=== PATIENT | female | born 1935 | race Caucasian/White ===

== ENCOUNTER 2022-12-25 09:57 | Outpatient (CLI) | payer MEDICARE, BC, SELFPAY ==
--- NOTE | 2022-12-25 11:37 | ECG_ITS ---
Measurements Intervals [place] Rate: 48 P: 73 ID: [id number] QRS: 11 QRSD: 92 T: 9 QT: 454 QTc: 408 Interpretive Statements SINUS BRADYCARDIA LOW QRS VOLTAGE IN PRECORDIAL LEADS [QRS DEFLECTION < 1.0 mV IN CHEST LEADS] ABNORMAL ECG NO PREVIOUS ECG AVAILABLE FOR COMPARISON Electronically Signed On 12-25-2022 12:10:40 CDT by Dilip Mckay M.D.
[2022-12-25 12:06] LABS: Hematocrit 42.5 % (37.0-47.0); Hemoglobin 13.8 g/dL (12.0-15.0); Mean Corpuscular HGB Conc 32.5 g/dl (32-36); Mean Corpuscular Hemoglobin 30.9 pg (26-34); Mean Corpuscular Volume 95.3 fl (80-100); Mean Platelet Volume 9.7 fl (7.4-10.4); Platelet Count Result 227 k/mm3 (150-375); Red Blood Count 4.46 M/mm3 (4.2-5.4); Red Cell Distribution Width 13.2 % (11.5-14.5); White Blood Count 6.4 K/mm3 (4.5-10.0)
[2022-12-25 12:09] LABS: Appearance Urine Clear (Clear); Bilirubin Urine Negative (Negative); Blood Urine Negative (Negative); Color Urine Yellow (Yellow); Glucose Urine UA Negative (Negative); Ketones Urine Negative (Negative); Leukocyte Esterase Ur Negative LEU/UL (Negative); Nitrate Urine Negative (Negative); Protein Urine Negative (Negative); Specific Grav Ur 1.005 (1.001-1.035); Urobilinogen Urine 0.2 mg/dL (<2.0)
[2022-12-25 12:15] LABS: Anion Gap 4 mmol/L (8-16); Blood Urea Nitrogen 34 mg/dL (7-17); Calcium 9.1 mg/dL (8.4-10.2); Carbon Dioxide 34 mmol/L (22-30); Chloride 102 mmol/L (98-107); Estimated Glomerular Filt Rate 53; Glucose 90 mg/dL (65-110); Potassium 4.3 mmol/L (3.4-5.0); Sodium 140 mmol/L (137-145)
[2022-12-25 12:16] LABS: Add Urine Microscopic? NO
[2022-12-25 12:19] LABS: Prothrombin Time 13.4 Seconds (11.1-14.7)
[2022-12-25 12:20] LABS: Partial Thromboplastin Time 28.8 SECONDS (22.3-36.8)
== END 2022-12-25 09:58 | disposition home or self-care (01) ==
LOC: ANHSURGERY 10:08
PROVIDERS: PCP Family Medicine; Visit Provider Neurological Surgery
DX: M54.9 Dorsalgia, unspecified (principal); G89.29 Other chronic pain; E78.5 Hyperlipidemia, unspecified; Z01.818 Encounter for other preprocedural examination; R94.31 Abnormal electrocardiogram [ECG] [EKG]
CPT/HCPCS: 36415; 80048; 81003; 85027; 85610; 85730; 93005

== ENCOUNTER 2022-12-28 00:04 | Day surgery (SDC) | payer MEDICARE, BC, SELFPAY ==
[2022-12-25 10:15] VITALS: BMI 40.1
[2022-12-25 10:33] VITALS: BP 133/71; PULSE 55; RESP 16; TEMP 37.1; O2SAT 98
--- NOTE | 2022-12-25 11:00 | PC.NURSE ---
Report to the Outpatient Waiting Room, entrance under the green pavilion located off [facility], at time __10:00AM on date ___12/28/22____. Planned Procedure Time: __12:00PM . Time changes happen often and if your time is changed the preop area will call you the afternoon before. - You and your visitor will be asked to self-screen and do not enter if you have any COVID symptoms. - A mask is optional within the hospital at this time. Patients may have clear liquids (water, carbonated beverages, clear teas, apple juice) until 3 hours prior to surgery with a maximum of 20 ounces. - No food from midnight until time of surgery Take the following medications with a SIP of water the morning of surgery: ___COMBIVENT INHALER, LEVOTHYROXINE, LYRICA DO NOT STOP ANY OF YOUR OTHER PRESCRIPTION MEDICATIONS PRIOR TO SURGERY ?EXCEPT THE FOLLOWING Medications to discontinue per physician ___HOLD ELIQUIS & ASPIRIN 3 DAYS PRE-OP PER DR. AYALA/DR GUZMAN- LAST DOSE 12/24/22. HOLD MAGNESIUM & VIT D 3 DAYS PRE-OP PER ANESTHESIA- LAST DOSE 12/24/22 Please no make-up, nail occitan, hairspray, perfume, deodorant, or body powder the day of surgery. No jewelry (including any body piercings) or valuables the day of surgery, leave them at home. Please take a shower or bath the night before, or the morning of, surgery with an antibacterial soap. Wear comfortable, loose fitting clothing. Children are encouraged to wear pajamas. - Jewelry must be removed prior to entering the operating room. Rings and piercings that are not removed may be cut off. - The hospital will not accept responsibility for valuables. - Please leave all valuables, including medications, at home the day of surgery. If you are going home after surgery, a licensed courier driver must drive you home. - NO public transportation without another adult if you receive anesthesia. - We recommend that an adult stay with you for 24 hours following discharge. - We also recommend that you do not drive, make important decision, drink alcoholic beverages, or take any drugs that were not prescribed by your health care provider for at least 24 hours after your discharge time. Follow any additional instructions given to you from your surgeon. If you or anyone in your household have experienced Covid symptoms in the past week, please notify your surgeon or the nurse liaison at the phone number below for possible testing. Telephone instructions given to _PATIENT AND [id number] vmd asked if any additional questions and then verbalized understanding. Patient advised to call surgeon office or pre surgery nurse liaison [phone] if any additional questions. Report to the Outpatient Waiting Room, entrance under the [facility] pavilion located off [facility], at time on date . Planned Procedure Time: . Time changes happen often and if your time is changed the preop area will call you the afternoon before. - You and your visitor will be asked to self-screen and do not enter if you have any COVID symptoms. - A mask is optional within the hospital at this time. Patients may have clear liquids (water, carbonated beverages, clear teas, apple juice) until 3 hours prior to surgery with a maximum of 20 ounces. - No food from midnight until time of surgery - Infants may have breast milk until 4 hours before surgery, infant formula 6 hours prior to surgery. - Children will be allowed to drink immediately following surgery. If applicable, please bring a bottle or sippy cup to assist with drinking. Juice, water, soda, and popsicles are readily available. For infants on formula, please bring formula the day of surgery. Pacifiers are allowed. Take the following medications with a SIP of water the morning of surgery: DO NOT STOP ANY OF YOUR OTHER PRESCRIPTION MEDICATIONS PRIOR TO SURGERY ?EXCEPT THE FOLLOWING Medications to discontinu
[2022-12-28] VITALS (7 sets, daily range): BP systolic 98–148; BP diastolic 44–82; PULSE 58–93; RESP 14–20; TEMP 36.4–36.8; O2SAT 97–100
--- NOTE | 2022-12-28 11:12 | WPDANESEPPF ---
Anes - Initial Pre Proc Eval Procedure: Operation Date: 12/28/22 12:00 Proposed Procedures p Removal of Dorsal Column Stimulator Lead and Generator - Ildefonso Ramos MD Date/Time: 12/28/22 11:12 Surgeon: Ildefonso Ramos MD Pre Op Diagnosis: Chr Back Pain, Chronic Leg Pain Patient Data Age: 87 Gender: F Height: 1.61 m Weight: 104.4 kg Last Vital Signs Temp 36.4 C L 12/28/22 10:48 Pulse 62 12/28/22 10:48 Resp 14 12/28/22 10:48 BP 128/60 12/28/22 10:48 Pulse Ox 97 12/28/22 10:48 O2 Del Method Room Air 12/28/22 10:48 Allergies Allergy/AdvReac Type Severity Reaction Status Date / Time adhesive tape Allergy Intermediate Itching, Verified 12/28/22 10:59 REDNESS clopidogrel [From Plavix] AdvReac Severe GI Bleeding Verified 12/28/22 10:59 Home Medications Medication Instructions Recorded Confirmed Type apixaban 2.5 mg tablet (Eliquis) 2.5 mg PO BID 11/06/22 12/25/22 History aspirin 81 mg tablet,delayed 81 mg PO WEEKLY 11/06/22 12/25/22 History release (Adult Low Dose Aspirin) bumetanide 1 mg tablet 1 mg PO QAM 11/06/22 12/25/22 History cholecalciferol (vitamin D3) 25 2,000 unit PO DAILY 11/06/22 12/25/22 History mcg (1,000 unit) capsule fluticasone propionate 50 2 spray intranasal QAM 11/06/22 12/25/22 History mcg/actuation nasal spray,suspension ipratropium 20 mcg-albuterol 100 1 puff inhalation QID PRN 11/06/22 12/28/22 History mcg/actuation mist for inhalation Shortness Of Breath Or Wheezing (Combivent Respimat) latanoprost 0.005 % eye drops 1 drp EACH EYE HS 11/06/22 12/25/22 History (Xalatan) magnesium oxide 400 mg (241.3 mg 400 mg PO DAILY 11/06/22 12/25/22 History magnesium) tablet (MagOx) pantoprazole 40 mg tablet,delayed 40 mg PO DAILY 11/06/22 12/25/22 History release (Protonix) polyethylene glycol 3350 17 17 g PO DAILY PRN Constipation 11/06/22 12/25/22 History gram/dose oral powder (Miralax) potassium chloride 10 mEq 10 meq PO DAILY 11/06/22 12/25/22 History capsule,extended release pregabalin 50 mg capsule (Lyrica) 50 mg PO BID 11/06/22 12/28/22 History ropinirole 1 mg tablet 1 mg PO QPM 11/06/22 12/25/22 History acetaminophen 500 mg capsule 1,000 mg PO Q6H PRN Pain 12/25/22 12/25/22 History levothyroxine 125 mcg tablet 125 mcg PO QAM 12/25/22 12/28/22 History (Synthroid) loratadine 10 mg tablet (Claritin) 10 mg PO DAILY PRN Sinus Symptoms 12/25/22 12/25/22 History rosuvastatin 20 mg tablet 20 mg PO DAILY 12/25/22 12/25/22 History Patient hx anesthesia problems: none Family hx anesthesia problems: none Results Review: All pre-operative results and documents have been reviewed as part of the pre-operative evaluation. [facility] Past Medical History Medical History Arthritis CAD (coronary artery disease) Frequent falls GERD (gastroesophageal reflux disease) Heart disease History of heart attack Hyperlipidemia Kidney disease Thyroid disease Family History Family History Father History of cancer Mother History of cancer Diabetes mellitus Sibling History of cancer Social History Social History Social History: Laura is very confident in filling out medical forms and has not had any assistance in the last 12 months. She has had 6 pregnancies, 1 miscarriage and 5 live births. Flu, tetanus and pneumonia vaccine: 02/25, in 6mos she is having her cholesterol checked, and last colonoscopy was in 2020. Smoking packs per day: 0.25 Smoking cigarettes per day: 5.0 Years smoked: 4 Smoking pack-years: 1.00 Smoking status: Former smoker Tobacco type: cigarettes Second hand tobacco smoke exposure: Yes Smoking end date: 11/05/1959 Alcohol intake: former Substance use: never Lack of Transportation: No Lack of Food: Never True Cu
[2022-12-28] MEDS: LACTATED RINGERS 1,000 ML 30 ML IV CONT (12:21)
--- NOTE | 2022-12-28 12:30 | SUR.PREOP ---
1230- Informed patient and son delay to procedure start time. Patient and son verbalized understanding and denying needs at this time.
--- NOTE | 2022-12-28 13:35 | PM.IMHP ---
H&P: HPI History of Present Illness Date/Time: 12/28/22 13:35 Chief Complaint: Chronic back and leg pain Narrative: Laura is an 87-year-old female with dorsal column stimulator in place that is no longer working for her and presents for removal of that device. She has some weakness of dorsiflexion on the right but otherwise no specific muscle group weakness or dermatomal numbness. She is not having bowel or bladder difficulty she has not changed appreciably since we last saw her. Review of Systems Review of Systems: Patient denies shortness of breath, cough, fever, chills, nausea, vomiting, weight loss, weight gain, chest pain, dysuria. She has back and leg pain as above. Review of systems otherwise negative on 12 systems except as noted elsewhere. [facility] Past Medical History Medical History Arthritis CAD (coronary artery disease) Frequent falls GERD (gastroesophageal reflux disease) Heart disease History of heart attack Hyperlipidemia Kidney disease Thyroid disease Family History Family History Father History of cancer Mother History of cancer Diabetes mellitus Sibling History of cancer Social History Social History Social History: Laura is very confident in filling out medical forms and has not had any assistance in the last 12 months. She has had 6 pregnancies, 1 miscarriage and 5 live births. Flu, tetanus and pneumonia vaccine: 02/25, in 6mos she is having her cholesterol checked, and last colonoscopy was in 2020. Smoking packs per day: 0.25 Smoking cigarettes per day: 5.0 Years smoked: 4 Smoking pack-years: 1.00 Smoking status: Former smoker Tobacco type: cigarettes Second hand tobacco smoke exposure: Yes Smoking end date: 11/05/1959 Alcohol intake: former Substance use: never Lack of Transportation: No Lack of Food: Never True Current Housing: I Have Housing Concerned About Future Housing: No Difficulty Paying Gas/Electric Bills: No Difficulty Paying for Meds: No Currently Unemployed: No Education: High School Diploma/GED Difficulty w/ Childcare or Family Care: No Living arrangements: alone Additional living arrangements comments: SUPPORTIVE LIVING APARTMENT Occupation/Education: retired Gender identity (if verbalized by the patient): Female Sexual Orientation (if Verbalized by the Patient): Straight or Heterosexual Spiritual care concerns: No Agree to blood products: Yes Meds Home Medications and Allergies Home Medications Medication Instructions Recorded Confirmed Type apixaban 2.5 mg tablet (Eliquis) 2.5 mg PO BID 11/06/22 12/25/22 History aspirin 81 mg tablet,delayed 81 mg PO WEEKLY 11/06/22 12/25/22 History release (Adult Low Dose Aspirin) bumetanide 1 mg tablet 1 mg PO QAM 11/06/22 12/25/22 History cholecalciferol (vitamin D3) 25 2,000 unit PO DAILY 11/06/22 12/25/22 History mcg (1,000 unit) capsule fluticasone propionate 50 2 spray intranasal QAM 11/06/22 12/25/22 History mcg/actuation nasal spray,suspension ipratropium 20 mcg-albuterol 100 1 puff inhalation QID PRN 11/06/22 12/28/22 History mcg/actuation mist for inhalation Shortness Of Breath Or Wheezing (Combivent Respimat) latanoprost 0.005 % eye drops 1 drp EACH EYE HS 11/06/22 12/25/22 History (Xalatan) magnesium oxide 400 mg (241.3 mg 400 mg PO DAILY 11/06/22 12/25/22 History magnesium) tablet (MagOx) pantoprazole 40 mg tablet,delayed 40 mg PO DAILY 11/06/22 12/25/22 History release (Protonix) polyethylene glycol 3350 17 17 g PO DAILY PRN Constipation 11/06/22 12/25/22 History gram/dose oral powder (Miralax) potassium chloride 10 mEq 10 meq PO DAILY 11/06/22 12/25/22 History capsule,extended release pregabalin 50 mg capsule (Lyrica) 50 mg PO BID 11/06/22
--- NOTE | 2022-12-28 13:37 | WPDHPUPDATE1 ---
History and Physical Update Update Date/Time: 12/28/22 13:37 History and Physical has been reviewed, including an updated exam of the patient. There are NO changes in the patient's condition. Risks, benefits, and alternatives have been discussed and questions answered. Patient agrees to proceed with procedure.
[2022-12-28] MEDS: ceFAZolin 2 GM/D5W 50 ML 2 GM/50 ML BAG IVPB (13:43)
[2022-12-28] MEDS: LIDO 1%/EPINEPHRINE 1:100,000 50 ML VIAL 10 ML INFILTRATE (14:10)
--- NOTE | 2022-12-28 14:32 | W.PM.PROC2 ---
Procedure Note - Detailed Date of Procedure 12/28/22 Pre-op Diagnosis Chr Back Pain, Chronic Leg Pain Post-op Diagnosis Same Procedure Performed Removal of dorsal column stimulator lead and generator Surgeon Ildefonso Ramos MD Anesthesia General Description of Procedure Patient was brought to the operating room in the supine position, was sedated, intubated placed under general anesthesia in routine fashion. He was then turned into the prone position on a Robinson frame. There of operation on her back was examined, marked for incision, prepped and draped in routine sterile fashion. Incision was marked over the previous incisions the left flank and trans adversely and longitudinally in the thoracic spine. These areas were injected with 0.5% lidocaine with [id number] epinephrine. Intravenous antibiotics given prior to incision. Incisions were made with a 10 blade scalpel. Bovie cautery was used to complete the soft tissue discovered the generator and release it from the fascia and uncoiled the wires. Wires were cut the generator was passed off the field. At the thoracic incision Bovie cautery was used to discover the wires were then pulled through from the flank incision. Their attachment to the spinous process was discovered and disconnected using Bovie cautery. The wires were then followed to the epidural space using Bovie cautery. Shoulders of the lead were discovered there were pulled out of the epidural space. The sleeve the entire device including the generator, lead and connector were all removed. The wounds were then copiously irrigated with bacitracin irrigation all bleeding stopped with bipolar Bovie cautery and Gelfoam thrombin powder. The wound was then closed in layered fashion with 2-0 Vicryl interrupted sutures in the thoracic fascia and Binh's layer. At both incisions 3-0 Vicryl buried interrupted sutures were placed in the dermis in the skin was closed with a running 4-0 Monocryl subcuticular stitch and dressed with Dermabond. The patient was loud wake up in the operating room and was taken to the recovery room in stable condition. There were no immediate complications of this operation. All counts were reported correct in the case. Blood loss was 5 cc. The patient was neurologically at her baseline postoperatively. Estimated Blood Loss 5 IV Fluids 500 Complications None Condition Stable Disposition PACU [facility] Billing Surgery - Charge Forward: Surgery Billing
[2022-12-28] MEDS: fentaNYL CITRATE INJ (*CRX) 100 MCG/2 ML VIAL 25 MCG IV PUSH (15:06)
== END 2022-12-28 16:36 | disposition home or self-care (01) ==
PROVIDERS: PCP Family Medicine; Visit Provider Neurological Surgery
PROC: (CPT 63688; principal; 2022-12-28 12:00)
DX: Z45.42 Encounter for adjustment and management of neurostimulator (principal); M79.606 Pain in leg, unspecified; M54.9 Dorsalgia, unspecified; G89.29 Other chronic pain; I25.10 Atherosclerotic heart disease of native coronary artery without angina pectoris; I25.2 Old myocardial infarction; K21.9 Gastro-esophageal reflux disease without esophagitis; I51.9 Heart disease, unspecified; E78.5 Hyperlipidemia, unspecified; Z87.891 Personal history of nicotine dependence; Z79.01 Long term (current) use of anticoagulants; Z79.82 Long term (current) use of aspirin; Z79.51 Long term (current) use of inhaled steroids; E66.01 Morbid (severe) obesity due to excess calories; Z68.41 Body mass index [BMI] 40.0-44.9, adult
CPT/HCPCS: 63688; 63661; J0330; J0690; J1100; J2405; J2704; J3010; J7120

== ENCOUNTER 2023-10-09 08:08 | Outpatient (CLI) | payer MEDICARE, BC, SELFPAY ==
--- NOTE | ~2023-10-09 | MR_ITS ---
MRI of the lumbar spine Clinical History: Foot drop Technique: Axial T2-weighted images, and sagittal T1-weighted, T2-weighted, and STIR images were acqu ired. Findings: There is straightening of the normal lumbar lordosis. No fracture or subluxation seen. Ther e is posterior fusion hardware extending from L3 through S1, with bilateral rods and transpedicular s crews present. There is posterior decompression at L4 and L5. No suspicious bone marrow signal abnorm ality seen. At L1-L2, there is advanced degenerative disc narrowing. There is mild disc bulge with severe facet a rthropathy. There is mild central canal stenosis and moderate bilateral neural foraminal narrowing, l eft worse than right. At L2-L3, there is moderate degenerative disc narrowing. There is minimal disc bulge and moderate fac et arthropathy. No central canal stenosis. There is probable minimal left neural foraminal narrowing. Right neural foramen preserved. At L3-L4, there is moderate degenerative disc narrowing with minimal disc bulge. No spinal canal sten osis. Probable mild bilateral neural foraminal narrowing. At L4-L5, there is advanced degenerative disc narrowing with minimal disc bulge. No central canal lora nosis. Probable moderate right neural foraminal narrowing and mild left neural foraminal narrowing. At L5-S1, there is moderate degenerative disc narrowing, without significant disc bulge or herniation . No spinal canal stenosis. Probable moderate right neural foraminal narrowing and mild left neural f oraminal narrowing. Note is made at T12-L1 disc bulge and severe facet arthropathy, resulting in moderate to severe spina l canal stenosis/thecal sac compression. Paravertebral soft tissues are unremarkable, aside from expected postoperative change. Impression: Advanced degenerative spondylosis at T12-L1 and L1-L2, as detailed above. Mild degenerative changes in the remainder of the lumbar spine. Posterior fusion changes from L3 through S1, as detailed above. Reviewed, dictated and finalized at location . Impression: Advanced degenerative spondylosis at T12-L1 and L1-L2, as detailed above. Mild degenerative changes in the remainder of the lumbar spine. Posterior fusion changes from L3 through S1, as detailed above.
[2023-10-09 09:04] LABS: Basophils Percent Auto 0.7 % (0.2-1.2); Eosinophils Absolute Auto 0.2 K/mm3 (0-0.3); Eosinophils Percent Auto 2.9 % (0-4.4); Hematocrit 45.8 % (37.0-47.0); Hemoglobin 14.3 g/dL (12.0-15.0); Immature Granulocyte Absolute 0.01 K/mm3 (0.00-0.031); Immature Granulocyte Percent A 0.2 % (0-0.5); Lymphocytes Absolute Auto 1.81 K/mm3 (0.9-3.2); Lymphocytes Percent Auto 30.5 % (18.3-44.2); Mean Corpuscular HGB Conc 31.2 g/dl (32-36); Mean Corpuscular Hemoglobin 30.8 pg (26-34); Mean Corpuscular Volume 98.5 fl (80-100); Monocytes Absolute Auto 0.5 K/mm3 (0.1-0.6); Monocytes Percent Auto 8.1 % (2.6-8.5); Neutrophils Absolute Auto 3.4 K/mm3 (1.3-6.7); Neutrophils Percent Auto 57.6 % (45.5-73.1); Platelet Count Result 252 k/mm3 (150-375); Red Blood Count 4.65 M/mm3 (4.2-5.4); Red Cell Distribution Width 12.9 % (11.5-14.5); White Blood Count 5.9 K/mm3 (4.5-10.0)
[2023-10-09 09:37] LABS: Alanine Aminotransferase 15 U/L (6-35); Alkaline Phosphatase 69 U/L (38-126); Anion Gap 5 mmol/L (4-12); Aspartate Amino Transferase 25 U/L (14-36); Bilirubin,Total 0.9 mg/dL (0.2-1.3); Blood Urea Nitrogen 29 mg/dL (7-17); Calcium 9.4 mg/dL (8.4-10.2); Carbon Dioxide 31 mmol/L (22-30); Chloride 105 mmol/L (98-107); Estimated Glomerular Filt Rate 47; Glucose 96 mg/dL (65-110); Potassium 5.1 mmol/L (3.4-5.0); Sodium 141 mmol/L (137-145)
[2023-10-09 10:06] LABS: Thyroid Stimulating Hormone 0.892 uIU/mL (0.465-4.680)
[2023-10-09 10:35] LABS: Hemoglobin A1C 5.3 % (<5.7)
[2023-10-09 10:58] LABS: Folic Acid 16.9 ng/mL (2.76->20)
--- NOTE | 2023-10-09 11:00 | NEURO_ITS ---
Impression: # Non-diabetic complains of left foot drop. History of lower back surgery. 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 # Needle/EMG exam reveals chronic neurogenic changes bilaterally without fibrillations. # Superimposed higher involvement needs to be ruled out. Nerve Conduction Studies Anti Sensory Summary Table Stim Site NR Peak (ms) P-T Amp (?V) Site1 Site2 Delta-P (ms) Dist (cm) Enrique (m/s) Left Sup Fibular Anti Sensory (Ant Lat Mall) 14 cm 4.4 0.7 14 cm Ant Lat Mall 4.4 16.0 36 Right Sup Fibular Anti Sensory (Ant Lat Mall) NO RESPONSE 14 cm NR 14 cm Ant Lat Mall 16.0 Left Sural Anti Sensory (Lat Mall) Calf 4.8 9.0 Calf Lat Mall 4.8 16.0 33 Right Sural Anti Sensory (Lat Mall) NO RESPONSE Calf NR Calf Lat Mall 16.0 Motor Summary Table Stim Site NR Onset (ms) O-P Amp (mV) Site1 Site2 Delta-0 (ms) Dist (cm) Enrique (m/s) Left Peroneal Motor (Vastus Med) NO RESPONSE Ankle NR Popit Ankle 0.0 Popit NR Right Peroneal Motor (Vastus Med) Ankle 4.0 1.5 Popit Ankle 9.7 38.0 39 Popit 13.7 0.9 Left Tibial Motor (Abd Jackson Brev) NO RESPONSE Ankle NR Knee Ankle 0.0 Knee NR Right Tibial Motor (Abd Jackson Brev) NO RESPONSE Ankle NR Knee Ankle 0.0 Knee NR F Wave Studies NR F-Lat (ms) L-R F-Lat (ms) Left Peroneal (Mrkrs) (EDB) 59.88 1.75 Right Peroneal (Mrkrs) (EDB) 58.13 1.75 Left Tibial (Mrkrs) (Abd Hallucis) 55.91 0.82 Right Tibial (Mrkrs) (Abd Hallucis) 56.73 0.82 EMG Side Muscle Nerve Root Ins Act Fibs Amp Dur Recrt Comment Right AntTibialis Dp Br Fibular L4-5 Nml Nml Decr >12ms +2 Right Gastroc Tibial S1-2 Nml Nml Decr >12ms +2 Right Fibularis Long Sup Br Fibular L5-S1 Nml Nml Decr >12ms +2 Right Flex Dig Long Tibial L5-S2 Nml Nml Decr >12ms +2 Right Ext Dig Brev Dp Br Fibular L5, S1 Nml Nml Decr >12ms +2 Left AntTibialis Dp Br Fibular L4-5 Nml Nml Decr >12ms +3 Left Gastroc Tibial S1-2 Nml Nml Decr >12ms +2 Left Fibularis Long Sup Br Fibular L5-S1 Nml Nml Decr >12ms +2 Left Flex Dig Long Tibial L5-S2 Nml Nml Decr >12ms +2 Left Ext Dig Brev Dp Br Fibular L5, S1 Nml Nml Decr >12ms +3 MTDD
[2023-10-10 12:53] LABS: SS-A <1.0 NEG AI (<1.0 NEG); SS-B <1.0 NEG AI (<1.0 NEG)
[2023-10-12 12:54] LABS: Arsenic, Blood <10 mcg/L (<23); Mercury, Blood <5 mcg/L (<OR=10)
[2023-10-12 17:33] LABS: Lead, Blood 2.4 mcg/dL (<3.5)
[2023-10-13 10:43] LABS: Vitamin B1 10 nmol/L (8-30)
[2023-10-13 13:49] LABS: Vitamin B6 5.8 ng/mL (2.1-21.7)
[2023-10-15 16:19] LABS: Immunofixation, Serum Normal pattern.
[2023-10-16 14:18] LABS: Collection Sample Venous
== END 2023-10-09 08:09 | disposition home or self-care (01) ==
PROVIDERS: PCP Family Medicine; Visit Provider Student in an Organized Health Care Education/Training Program
DX: M21.372 Foot drop, left foot (principal); G62.9 Polyneuropathy, unspecified; G60.9 Hereditary and idiopathic neuropathy, unspecified; M47.895 Other spondylosis, thoracolumbar region; M47.896 Other spondylosis, lumbar region; E78.5 Hyperlipidemia, unspecified; G89.29 Other chronic pain; M54.9 Dorsalgia, unspecified; Z13.1 Encounter for screening for diabetes mellitus
CPT/HCPCS: 36415; 72148; 80053; 82175; 82607; 82746; 83036; 83655; 83825; 84207; 84425; 84443; 85025; 86038; 86039; 86235; 86334; 86335; 95886; 95910

== ENCOUNTER 2023-12-17 11:43 | Outpatient (CLI) | payer MEDICARE, BC, SELFPAY ==
--- NOTE | ~2023-12-17 | MR_ITS ---
EXAMINATION: MR knee LT wo con DATE: 12/17/2023 12:59 INDICATION: Left foot drop. Possible ganglion cyst of the peroneal nerve. TECHNIQUE: Magnetic resonance imaging (MRI) of the left knee was performed without intravenous contra st. Sequences included axial, sagittal and coronal T1-weighted FSE and fluid sensitive FSE STIR. COMPARISON: None. FINDINGS: Postoperative change of prior left total knee arthroplasty with patellar resurfacing. There is promin ent metallic magnetic field artifact surrounding the components of the arthroplasty which obscures th e immediately adjacent bone and soft tissues. Bone marrow signal is otherwise normal. Minimal fluid a t the suprapatellar pouch which is within normal limits. Small Gardiner's cyst. There is severe fatty atrophy of the visualized proximal musculature in the anterior and lateral comp artments of the left lower leg. There is additional moderate fatty atrophy of the popliteus muscle be lly, the visualized proximal medial head of the gastrocnemius muscle and the distal semimembranosus m uscle. There is suggestion of a chronic tear myotendinous junction at the aponeurosis along the deep margin of the proximal medial head of the gastrocnemius muscle. The metallic field artifact obscures a 4 cm long segment of the common peroneal nerve as it passes po sterior to the posterior margin of the lateral femoral condyle. The tibial nerve and visualized porti ons of the peroneal nerve are normal. IMPRESSION: 1. Normal appearance to the visualized portion of the tibial nerve and common peroneal nerve. A 4 cm segment of the common peroneal nerve posterior to the lateral femoral condyle is obscured by metallic streak artifact from a total knee arthroplasty. 2. Severe fatty atrophy of the visualized proximal musculature in the anterior and lateral compartmen ts with additional moderate fatty atrophy of the popliteus muscle and visualized proximal medial head of the gastrocnemius muscle. Reviewed, dictated and finalized at location A. IMPRESSION: 1. Normal appearance to the visualized portion of the tibial nerve and common p eroneal nerve. A 4 cm segment of the common peroneal nerve posterior to the lat eral femoral condyle is obscured by metallic streak artifact from a total knee arthroplasty. 2. Severe fatty atrophy of the visualized proximal musculature in the anterior and lateral compartments with additional moderate fatty atrophy of the popliteu s muscle and visualized proximal medial head of the gastrocnemius muscle.
== END 2023-12-17 11:44 | disposition home or self-care (01) ==
PROVIDERS: PCP Family Medicine; Visit Provider Psychiatry & Neurology Neurology
DX: M21.372 Foot drop, left foot (principal); M62.562 Muscle wasting and atrophy, not elsewhere classified, left lower leg
CPT/HCPCS: 73721